=== PATIENT | female | born 1960 | race Two or more races ===

== ENCOUNTER 2019-07-20 23:48 | Emergency (ER) | payer OTHER ==
[~2019-07-20] VITALS: Ht 167.6 cm; Wt 53.1 kg
--- NOTE | 2019-07-21 00:15 | NUR ---
MD AT BEDSIDE FOR HX AND PHYSICAL PT ABLE TO TOLERATE LAC REPAIR OF #5 LEFT HAND, DISTAL LESS THAN 0.5CM AVULSION Addendum: 07/21/19 at 0029 by ALEJANDRA OF NOTE: PT HAS BEEN TAKING ALEVE WITHIN THE PAST 24HRS FOR MIGRAINE
--- NOTE | 2019-07-21 00:28 | NUR ---
Patient discharged to home in stable conditon. Written and verbal after care instructions given. Patient verbalizes understanding of instructions. AMBULATORY W/ STABLE GAIT ALL BELONGINGS W/ PT
[2019-07-21 00:34] VITALS: BP 140/75
== END 2019-07-21 00:34 | disposition home or self-care (01) ==
LOC: ER 23:57
DX: S61.307A Unspecified open wound of left little finger with damage to nail, initial encounter (principal); Z88.2 Allergy status to sulfonamides; W26.8XXA Contact with other sharp object(s), not elsewhere classified, initial encounter; Y93.89 Activity, other specified; Y92.89 Other specified places as the place of occurrence of the external cause; Y99.8 Other external cause status
CPT/HCPCS: A4663